=== PATIENT | female | born 1965 | race Caucasian/White ===

== ENCOUNTER → 2018-02-04 21:53 | Outpatient (CLI) | payer OTHER, SELFPAY ==
[2018-02-08 12:35] LABS: HPV Reflexed? NOT INDICATED
== END ==
PROVIDERS: Visit Provider Obstetrics & Gynecology
DX: Z12.4 Encounter for screening for malignant neoplasm of cervix (principal); Z12.72 Encounter for screening for malignant neoplasm of vagina
CPT/HCPCS: 88175; G0145

== ENCOUNTER → 2019-03-04 | Outpatient (CLI) | payer OTHER, SELFPAY ==
[2019-03-11 09:40] LABS: HPV APTIMA, High Risk Negative (Negative)
== END | disposition home or self-care (01) ==
LOC: LABSPEC 16:15
PROVIDERS: Visit Provider Obstetrics & Gynecology
DX: Z12.4 Encounter for screening for malignant neoplasm of cervix (principal)
CPT/HCPCS: 87624; 88175; G0145

== ENCOUNTER → 2020-05-02 08:34 | Outpatient (CLI) | payer OTHER, SELFPAY ==
[2020-04-21 15:50] VITALS: BMI 25.8
--- NOTE | 2020-05-02 | BRBX_PTH ---
PATIENT: JOSE G KEENAN LOC: [facility] U#:[id number] AGE/SX: 59/F ROOM: RE05/02/[address]: Dr. José Quiros MD : 1965 BED: DIS: SPEC #: [id number] RECD: 05/02/20 10:23 STATUS: COLIN REBarrera #: [id number] LEDA: 05/02/20 00:[address]: José Quiros DEPT: SURGICAL PATHOLOGY RECD BY: Valdez Leonard ENTERED: 05/02/20 13:23 SP TYPE: BREAST BX OTHR DR: Dr. Tony Rao MD Tissues: Left breast, NOS Procedures: Surgery Specimen Level IV HEADER OPERATION: Left breast biopsy PRE-OP DIAGNOSIS: Left breast lesion TISSUE SUBMITTED: Left breast lesion 10 o'clock ISCHEMIC TIME: 1 minute FIXATION TIME: 10.5 hours MICROSCOPIC DIAGNOSIS Left breast lesion, 10 o'clock, core biopsy: Fragments of benign breast tissue with extensive dense fibrosis and focal ductal dilatation. Negative for atypia or malignancy. See comment. AMARJIT:lior 05/03/20 COMMENT Correlation with clinical, radiologic findings and appropriate follow up are necessary. MICROSCOPIC DESCRIPTION Slides are reviewed. GROSS DESCRIPTION Received in fixative is one container labeled with the patient name and designated left breast. The specimen consists of multiple elongated fragments of albarran-yellow fibroadipose tissue that in aggregate measure 2 x 0.5 x 0.1 cm. The entire specimen is submitted in one cassette. / AMARJIT:lior 05/02/20 TC:5 CPT: 93148
--- NOTE | 2020-05-02 08:36 | US_ITS ---
STUDY: ULTRASOUND BREAST - LEFT REASON FOR EXAM: Female, 54 years old. Left breast nodule. TECHNIQUE: Axial and longitudinal images of the LEFT breast were performed with a high resolution ultrasound transducer. # OF IMAGES: 24 COMPARISON: None. FINDINGS: LEFT Breast: The surgeon performed core biopsies of a 4 mm x 5 mm x 4 mm solid nodule at the 10 o''clock position of the breast at 3 cm from nipple. A tissue clip marker was placed. US/US Breast Biopsy 1st Lesion IMPRESSION: Ultrasound guided breast biopsy with clip placement. ASSESSMENT CATEGORY: BIRADS Category 2: Benign. A letter regarding these results will be sent to the patient by the facility within 30 days. Electronically Signed: Rudolph Almaguer, at 10:50 EDT , Service support ,
--- NOTE | 2020-05-02 09:18 | PCM.OPRPT ---
Problem List (1) Left breast mass Status: Acute Report of Operation Date of Procedure: 05/02/20 Pre-Operative Diagnosis: Left breast mass Post-Operative Diagnosis: Same Surgery/Procedure Performed:: Ultrasound-guided left breast biopsy Specimen's removed: Left breast biopsy Description of Procedure: The patient's left breast was prepped and draped in usual sterile fashion. Ultrasound was used to localize the mass superior to the nipple and this was compared to the ultrasound from the outside hospital and appeared the same. Next the area over the nipple was anesthetized with local anesthetic and a small fiorella was made with 11 blade scalpel. The mammotome needle was placed adjacent to the mass under ultrasound guidance and several biopsies were performed. The needle was then removed and a clip was placed at this area. Patient tolerated the procedure well and a Steri-Strip and bandage were applied.
== END ==
PROVIDERS: PCP Family Medicine; Referring Provider Surgery; Visit Provider Surgery
DX: N60.32 Fibrosclerosis of left breast (principal)
CPT/HCPCS: 19083; 88305

== ENCOUNTER → 2020-11-02 11:00 | Outpatient (CLI) | payer OTHER, SELFPAY ==
[2020-04-21 15:50] VITALS: BMI 25.8
--- NOTE | 2020-11-02 11:02 | US_ITS ---
STUDY: ULTRASOUND BREAST - LEFT REASON FOR EXAM: Female, 55 years old. Follow-up following left breast biopsy. TECHNIQUE: Axial and longitudinal images of the LEFT breast were performed with a high resolution ultrasound transducer. # OF IMAGES: 40 COMPARISON: Comparison is made with prior ultrasound of the left breast dated 05/02/2020. FINDINGS: LEFT Breast: A tissue clip marker is seen within a 4 mm x 5 mm x 4 mm hypoechoic solid nodule at the 10 o''clock position of the breast at 3 cm from the nipple. US/Breast Limited Unilateral IMPRESSION: Status post biopsy of a 4 mm x 5 mm x 4 mm hypoechoic solid nodule at the 10 o''clock position breast at 3 cm from the nipple. ASSESSMENT CATEGORY: BIRADS Category 2: Benign. A letter regarding these results will be sent to the patient by the facility within 30 days. Electronically Signed: Rudolph Almaguer MD at 12:45 EDT , Service support ,
== END ==
PROVIDERS: PCP Family Medicine; Visit Provider Surgery
DX: N63.20 Unspecified lump in the left breast, unspecified quadrant (principal)
CPT/HCPCS: 76642

== ENCOUNTER → 2020-11-16 08:38 | Outpatient (CLI) | payer OTHER, SELFPAY ==
[2020-04-21 15:50] VITALS: BMI 25.8
--- NOTE | 2020-11-16 08:47 | US_ITS ---
STUDY: ULTRASOUND OF THE FEMALE PELVIS - COMPLETE REASON FOR EXAM: Female, 55 years old. ACUTE ABD PAIN LMP: The patient is postmenopausal. TECHNIQUE: Transabdominal and Transvaginal TECHNICAL QUALITY: Adequate. COMPARISON: None. FINDINGS: The uterus is anteverted and is in a midline position. The uterus measures 6.1 cm x 4.5 cm x 2.6 cm. Normal uterine cervix. The endometrium measures 4 mm in thickness, and is hyperechoic. There is no demonstrated endometrial mass. There is a 7 mm x 6 mm x 6 mm uterine fibroid. I.U.D. - The patient does not have an I.U.D. The right ovary is visualized. The right ovary measures 2.4 cm x 1.7 cm x 1 cm. There is no right ovarian cyst or ovarian mass. There is no visualized right adnexal mass or complex lesion. There is normal arterial and normal venous vascularity. The left ovary is visualized. The left ovary measures 2.9 cm x 1.7 cm x 1.3 cm. There is no left ovarian cyst or ovarian mass. There is no visualized left adnexal mass or complex lesion. There is normal arterial and normal venous vascularity. There is no fluid in the cul-de-sac. The pre void volume of the bladder was 375 ml. Polycystic ovary disease: No. US/Pelvic (Non ) IMPRESSION: Small uterine fibroid. Electronically Signed: Rudolph Almaguer MD at 12:54 EDT , Service support ,
--- NOTE | 2020-11-16 08:47 | US_ITS ---
STUDY: ULTRASOUND OF THE FEMALE PELVIS - COMPLETE REASON FOR EXAM: Female, 55 years old. ACUTE ABD PAIN LMP: The patient is postmenopausal. TECHNIQUE: Transabdominal and Transvaginal TECHNICAL QUALITY: Adequate. COMPARISON: None. FINDINGS: The uterus is anteverted and is in a midline position. The uterus measures 6.1 cm x 4.5 cm x 2.6 cm. Normal uterine cervix. The endometrium measures 4 mm in thickness, and is hyperechoic. There is no demonstrated endometrial mass. There is a 7 mm x 6 mm x 6 mm uterine fibroid. I.U.D. - The patient does not have an I.U.D. The right ovary is visualized. The right ovary measures 2.4 cm x 1.7 cm x 1 cm. There is no right ovarian cyst or ovarian mass. There is no visualized right adnexal mass or complex lesion. There is normal arterial and normal venous vascularity. The left ovary is visualized. The left ovary measures 2.9 cm x 1.7 cm x 1.3 cm. There is no left ovarian cyst or ovarian mass. There is no visualized left adnexal mass or complex lesion. There is normal arterial and normal venous vascularity. There is no fluid in the cul-de-sac. The pre void volume of the bladder was 375 ml. Polycystic ovary disease: No. US/Transvaginal Non- IMPRESSION: Small uterine fibroid. Electronically Signed: Rudolph Almaguer MD at 12:54 EDT , Service support ,
--- NOTE | 2020-11-16 08:47 | US_ITS ---
STUDY: ABDOMINAL ULTRASOUND REASON FOR EXAM: Female, 55 years old. ACUTE ABD PAIN TECHNIQUE: Transabdominal ultrasound was performed with real-time and static patterson scale imaging. TECHNICAL QUALITY: Adequate. COMPARISON: None. FINDINGS: Liver: The liver measures 16.3 cm. There is normal echogenicity of the liver. The bile ducts are within normal limits. There is hepatic color flow. The direction of portal flow is hepatopetal. There is no demonstrated mass lesion. Portal vein measurement: Gallbladder: Normal distended gallbladder. The gallbladder wall measures 2.6 mm. There is a negative sonographic Piedra''s sign. There is no pericholecystic fluid. There are multiple echogenic structures within the gallbladder, consistent with multiple small gallstones. Common Bile Duct (C.B.D.): The common bile duct measures 4.6 mm. Pancreas: There is diffuse atrophy of the pancreas. There is normal echogenicity of the pancreas. There is a 7.6 cm x 5.8 x 4.8 cm septated cyst in the body and tail portion of the pancreas. This may represent a pseudocyst. Spleen: Normal size of the spleen. The spleen measures 10.3 cm x 4.6 cm x 4.5 cm. Right Kidney: Normal size of the right kidney. The right kidney measures 9.9 cm x 5.6 x 5 cm. Normal renal cortex. The right cortex measures 2 cm. There is no demonstrated renal mass or cyst. There is no right hydronephrosis. Left Kidney: Normal size of the left kidney. The left kidney measures 10 cm x 5.2 cm x 5.5 cm. Normal renal cortex. The left cortex measures 2.4 cm. There is no demonstrated renal mass or cyst. There is no left hydronephrosis. Aorta: Atherosclerotic plaque. I.V.C.: The IVC is patent. There is no ascites. US/Abdomen Complete IMPRESSION: Multiple small gallstones. 7.6 cm x 5.8 x 4.8 semi septated cyst in the body and tail portion of the pancreas. Electronically Signed: Rudolph Almaguer MD at 12:26 EDT , Service support ,
== END ==
PROVIDERS: PCP Family Medicine; Referring Provider Family Medicine; Visit Provider Family Medicine
DX: R10.9 Unspecified abdominal pain (principal)
CPT/HCPCS: 76700; 76830; 76856

== ENCOUNTER → 2020-11-29 14:33 | Outpatient (CLI) | payer OTHER, SELFPAY ==
[2020-11-29 14:13] VITALS: BMI 25.2
[2020-12-01 07:53] LABS: Carbohydrate AG 19-9 9 U/mL (0-35); Carcinoembryonic Antigen 1.2 ng/mL (0.0-4.7)
== END ==
PROVIDERS: PCP Family Medicine; Referring Provider Surgery; Visit Provider Surgery
DX: K86.2 Cyst of pancreas (principal)
CPT/HCPCS: 36415; 82378; 86301

== ENCOUNTER → 2020-12-05 08:06 | Outpatient (CLI) | payer OTHER, SELFPAY ==
[2020-11-29 14:13] VITALS: BMI 25.2
--- NOTE | 2020-12-05 08:07 | MRI_ITS ---
STUDY: MRI ABDOMEN WITH AND WITHOUT CONTRAST REASON FOR EXAM: Female, 55 years old. pancreatic cyst TECHNIQUE: Standardized fat and water weighted pulse sequences were obtained in all 3 orthogonal planes post contrast administration. IV Yes YES was administered for the contrast portion of the examination. COMPARISON: Abdominal ultrasound dated 11/16/2020 FINDINGS: The visualized lung bases are unremarkable. The visualized portions of the heart are within normal limits. Normal liver. Normal gallbladder and extrahepatic biliary system. Normal spleen. In the region of the tail the pancreas, there is a T2 hyperintense and T1 hypointense cystic structure measuring roughly 8.2 cm wide by 5.4 cm AP by 10.4 cm craniocaudal. This is partially septated. There appears to be no evidence of enhancement following contrast administration. This appears to insinuate around the pancreatic tail and may be a pancreatic pseudocyst formation. Remainder of the pancreas is within normal limits Normal bilateral adrenal glands. Normal right kidney. Normal left kidney. Normal visualized stomach. Normal small intestine. Normal colon. The appendix is visualized and appears normal. Normal abdominal aorta. Normal inferior vena cava. Normal retroperitoneum. Normal abdominal wall. Normal osseous structures. MRI/MRI Abd WITH and W/O Contrast IMPRESSION: T2 hyperintense cystic structure with mild septation in the region of the pancreatic tail demonstrating no enhancement. Unsure if this emanates from the pancreas itself or this is a separate pseudocyst formation. The remainder of the pancreatic parenchyma appears within normal limits. If patient has had recent pancreatitis, then favor pancreatic pseudocyst formation. Otherwise, unremarkable exam. Electronically Signed: Rufino Blanchard DO at 6:45 EDT Tel , Service support ,
== END ==
PROVIDERS: PCP Family Medicine; Referring Provider Surgery; Visit Provider Surgery
DX: K86.2 Cyst of pancreas (principal)
CPT/HCPCS: 74183; A9575; A4216